=== PATIENT | male | born 1985 | race Caucasian/White ===

== ENCOUNTER → 2018-05-28 | Outpatient (CLI) | payer BC | LOC: RAD 10:48 | DX: M51.17 Intervertebral disc disorders with radiculopathy, lumbosacral region (principal); M40.57 Lordosis, unspecified, lumbosacral region ==

== ENCOUNTER → 2018-05-29 | Outpatient (CLI) | payer BC | LOC: RAD 08:05 | DX: M51.16 Intervertebral disc disorders with radiculopathy, lumbar region (principal); M48.061 Spinal stenosis, lumbar region without neurogenic claudication ==